=== PATIENT | male | born 1995 | race Caucasian/White ===

== ENCOUNTER 2018-04-02 16:22 | Emergency (ER) | payer OTHER ==
[2018-04-02] MEDS ORDERED: Diphtheria,Pertussis(Acell),Tetanus Vaccine 0.5 ML SDV IM ONE (17:29)
[2018-04-02] MEDS ORDERED: Bacitracin Oint 1 GM U/D Packet TOP ONE (17:35)
--- NOTE | 2018-04-02 17:35 | EDM.PDOC ---
ED HPI GENERAL MEDICAL PROBLEM - General Chief Complaint: Wound Recheck Stated Complaint: STEPPED ON PIYUSH SPIKE, LEFT FOOT Time Seen by Provider: 04/02/18 17:20 Source of Information: Reports: Patient, RN History Limitations: Reports: No Limitations - History of Present Illness INITIAL COMMENTS - FREE TEXT/NARRATIVE: 22 yo male presents requesting a tetanus shot after stepping on a piyush nail prior to arrival. Was wearing work boots at the time. 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 No active bleeding. ) Neurological: Reports: No Symptoms ED EXAM, GENERAL - Physical Exam Exam: See Below Exam Limited By: No Limitations General Appearance: Alert, WD/WN, No Apparent Distress Extremities: No: Limited Range of Motion, Increased Warmth, Redness Neurological: Alert, Oriented, CN II-XII Intact, Normal Cognition, No Motor/ Sensory Deficits Psychiatric: Normal Affect, Normal Mood Skin Exam: Warm, Dry, Normal Color, No Rash, Wound/Incision (puncture wound to the L mid foot. Dried blood around wound. No active bleeding. ) Lymphatic: No Adenopathy Course - Vital Signs Last Recorded V/S: Last Vital Signs Temp 36.4 C 04/02/18 17:15 Pulse 65 04/02/18 17:15 Resp 18 04/02/18 17:15 BP 133/90 04/02/18 17:15 Pulse Ox 100 04/02/18 17:15 - Orders/Labs/Meds Orders: Active Orders 24 hr Category Date Time Status Vaccines to be Administered [RC] PER UNIT ROUTINE Care 04/02/18 17:29 Ordered Diphth,Pertuss(Acell),Tet Vac [Adacel] Med 04/02/18 17:29 Once 0.5 ml IM .ONCE ONE Medication Orders Diphtheria/Tetanus/Acell Pertussis (Adacel) 0.5 ml IM .ONCE ONE Stop: 04/02/18 17:30 Meds: Medications Generic Name Dose Route Start Last Admin Trade Name Errol PRN Reason Stop Dose Admin Diphtheria/Tetanus/Acell Pertussis 0.5 ml 04/02/18 17:29 Adacel IM 04/02/18 17:30 .ONCE ONE Departure - Departure Time of Disposition: 17:40 Disposition: Home, Self-Care 01 Condition: Good Clinical Impression: Puncture wound of foot Qualifiers: Encounter type: initial encounter Laterality: left Qualified Code(s): S91.332A - Puncture wound without foreign body, left foot, initial encounter - Discharge Information *PRESCRIPTION DRUG MONITORING PROGRAM REVIEWED*: Not Applicable *COPY OF PRESCRIPTION DRUG MONITORING REPORT IN PATIENT SCOTT: Not Applicable Instructions: Puncture Wound Referrals: PCP,None [Primary Care Provider] - Additional Instructions: Clean wound twice daily with soap and water. Keep wound clean and dry for at least 3 days. Walk on your heel for the next 3 days. Watch for and report signs of infection. Acetaminophen as needed for pain relief. - My Orders Last 24 Hours: My Active Orders 04/02/18 17:29 Vaccines to be Administered [RC] PER UNIT ROUTINE Diphth,Pertuss(Acell),Tet Vac [Adacel] 0.5 ml IM .ONCE ONE - Assessment/Plan Last 24 Hours: My Active Orders 04/02/18 17:29 Vaccines to be Administered [RC] PER UNIT ROUTINE Diphth,Pertuss(Acell),Tet Vac [Adacel] 0.5 ml IM .ONCE ONE
== END 2018-04-02 18:14 | disposition home or self-care (01) ==
LOC: JP.ED 16:22
DX: S91.332A Puncture wound without foreign body, left foot, initial encounter (principal); Z23 Encounter for immunization; W45.0XXA Nail entering through skin, initial encounter
CPT/HCPCS: 90471; 90715; 99283-25